=== PATIENT | male | born 1975 | race Caucasian/White ===

== ENCOUNTER 2025-03-31 16:12 | Inpatient (IN) | payer SELFPAY ==
[2025-03-31] VITALS (33 sets, daily range): BP systolic 80–155; BP diastolic 57–99; PULSE 57–160; RESP 9–23; TEMP 37.3; O2SAT 91–98; BMI 25.0
--- NOTE | 2025-03-31 16:16 | ED.C_ITS ---
Documented by User: BROCK Denny 03/31/25 17:46 HPI - Psych 2 General: Chief Complaint: Psychiatric Symptoms Stated Complaint: 96 Time Seen by Provider: 03/31/25 16:14 Source: patient Mode of arrival: EMS Limitations: no limitations History of Present Illness: Patient is a 49-year-old male presents to ED today on a 96-hour hold. According to hold paperwork filed by patient's family he has had a change in mental status over the past 2 weeks or so. They are concerned about potential drug use. 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 Paperwork states he has been exhibiting paranoid behavior-suspiciously watching family members, covering house windows, etc. He has apparently made statements to kill himself. complaint: altered mental status and other (psychosis) Onset (ago): unknown Relieving factors: none Exacerbating factors: none Associated symptoms: Reports no associated symptoms; Deny auditory hallucinations, visual hallucinations, homicidal ideation or suicidal ideation Treatments prior to arrival: placed on mental health hold Review of Systems 2 Const: Denies: fever(s) or chills Card: Reports: palpitations (feels like his heart is racing-anxious, does not want to be here); Denies: chest pain, edema, lightheadedness, syncope, pre-syncope, dyspnea on exertion or orthopnea Resp: Denies: dyspnea GI: Denies: abdominal pain, nausea, vomiting or diarrhea Musc: Denies: neck pain, back pain, extremity pain, extremity swelling, joint pain or joint swelling Skin/Breast: Denies: rash Neuro: Denies: headache(s), numbness in extremities, weakness in extremities or sensory changes Psych: Reports: anxiety, mood swings and paranoia; Denies: hopelessness, visual hallucinations, auditory hallucinations, suicidal ideation or homicidal ideation Physical Exam 2 Const: COMMON NORMALS: no acute distress, average body habitus, patient oriented x3, no limitations, healthy appearing, alert and well nourished G ENERAL APPEARANCE: cooperative ORIENTATION/CONSCIOUSNESS: Yes awake, Yes oriented to person, Yes oriented to place and Yes oriented to time OTHER: mildly agitated-does not want to be here Neck/C-Spine: COMMON NORMALS: no JVD Chest: COMMONS NORMALS: normal inspection of the chest and normal palpation of entire chest wall Resp: COMMON NORMALS: normal respiratory effort and clear to auscultation bilaterally AUSCULTATION: clear to auscultation bilaterally Cardio: COMMON NORMALS: no JVD RATE: tachycardic RHYTHM: abnormal rhythm irregularly irregular GI: COMMON NORMALS: Normal to inspection, nondistended, normoactive bowel sounds present, Soft to palpation, non-tender, No hepatosplenomegaly present and no masses PALPATION: Yes Soft to palpation and Yes No hepatosplenomegaly present : COMMON NORMALS: Yes no CVA tenderness BLADDER/KIDNEY EXAM: Yes no CVA tenderness Back/Pelvis: COMMON NORMALS: no CVA tenderness Extremity: COMMON NORMALS: capillary refill normal, no clubbing, cyanosis or edema, no calf tenderness and no pedal edema GENERAL: Yes normal exam except as noted Neuro: DIANNE COMA SCALE: document GCS findings Johnson coma scale eye opening: Spontaneous Johnson coma scale verbal response: Orientated Johnson coma scale motor response: Obey commands Johnson coma scale total score: 15 COMMON NORMALS: patient oriented x3, moves all extremities, no focal motor deficits and no sensory deficits noted SENSORIUM/ORIENTATION: Yes alert, Yes oriented to person, Yes oriented to place and Yes oriented to time Psych: COMMON NORMALS: Normal thought process present and speech normal A PPEARANCE: Yes grossly normal ATTITUDE: Yes calm ACTIVITY/MOTOR BEHAVIOR: Yes appropriate eye contact SPEECH: Yes normal speech MOOD & AFFECT: Yes Other affect and mood findings present (irritated) THOUGHT PROCESS: Normal thought process present ATTENTION/CONCENTRATION: Yes attention grossly intact and Yes concentration grossly intact MEMORY/COGNITION: Yes memory grossly intact and Yes cognition grossly intact INSIGHT: Limited insight present (Psych) JUDGEMENT: Limited judgement present (Psych) Course 2 Consultations: Consultation #1: Dr. Bermudez-accepts patient to CSU Consultation #2: Dr. Niño-agrees to consult while patient is admitted Vital Signs: Vital signs: Vital Signs Pulse Rate 75 03/31/25 17:47 Respiratory Rate 18 03/31/25 17:47 Blood Pressure 139/95 03/31/25 17:47 Pulse Oximetry 96 03/31/25 17:47 Oxygen Delivery Me thod Room Air 03/31/25 16:13 MDM - Psych Medical Decision Making Patient arrives here on a 96-hour hold. He was found to be in A-fib with RVR with rates up into the 140s-160s upon arrival. Has no history of cardiac arrhythmia. No known medical problems that he is aware of. Patient will be a medical admit and will have psychiatry, Dr. Niño, consult while he is admitted. I spoke to Dr. Bermudez who will be accepting the patient to CSU. Differential Diagnosis Likely acute psychosis Medical Records I reviewed the patient's medical records. Lab Data I reviewed the patient's lab results. 03/31/25 16:32 03/31/25 16:[address] 03/31/25 17:28 IMPRESSION: No acute intracranial abnormality. Laboratory Results WBC 10.00 10^3/uL (3.29-11.43) 03/31/25 16:32 RBC 5.16 10^6/uL (3.85-5.65) 03/31/25 16:32 Hgb 16.20 g/dL (11.27-16.99) 03/31/25 16:32 Hct 47.0 % (37-53) 03/31/25 16:32 MCV 91.1 fl (82-101) 03/31/25 16:32 MCH 31.4 pg (27-33) 03/31/25 16:32 MCHC 34.5 g/dL (30-55) 03/31/25 16:32 RDW 12.4 % (12.1-15.1) 03/31/25 16:32 Plt Count 242 10^3/cmm (157-399) 03/31/25 16:32 MPV 10.8 fL (7.4-10.4) H 03/31/25 16:32 Neut % (Auto) 62.5 % 03/31/25 16:32 Lymph % (Auto) 24.8 % 03/31/25 16:32 [place] % (Auto) 8.8 % 03/31/25 16:32 Eos % (Auto) 3.4 % 03/31/25 16:32 Baso % (Auto) 0.3 % 03/31/25 16:32 Neut # (Auto) 6.25 10^3/uL (1.8-7.7) 03/31/25 16:32 Lymph # (Auto) 2.5 10^3/uL (0.8-4.8) 03/31/25 16:32 [place] # (Auto) 0.9 10^3/uL (0.2-0.9) 03/31/25 16:32 Eos # (Auto) 0.3 10^3/uL (0.0-0.8) 03/31/25 16:32 Baso # (Auto) 0.0 10^3/uL (0.0-0.1) 03/31/25 16:32 Nucleated RBC % (auto) 0 % 03/31/25 16:32 Nucleated RBCs # 0.0 /100WBC 03/31/25 16:32 Sodium 140 mmol/L (136-145) 03/31/25 16:32 Potassium 3.3 mmol/L (3.5-5.1) L 03/31/25 16:32 Chloride 102 mmol/L (98-107) 03/31/25 16:32 Carbon Dioxide 21 mmol/L (22-29) L 03/31/25 16:32 Anion Gap 20.3 (5-19) H 03/31/25 16:32 BUN 5 mg/dL (6-20) L 03/31/25 16:32 Creatinine 0.8 mg/dL (0.7-1.2) 03/31/25 16:32 GFR Calculation 101.9 mL/min (90-130) 03/31/25 16:32 Glucose 134 mg/dL (65-115) H 03/31/25 16:32 Calculated Osmolality 289 mOsm/kg (285-295) 03/31/25 16:32 Calcium 9.0 mg/dL (8.5-10.5) 03/31/25 16:32 Total Bilirubin 0.5 mg/dL (0.15-1.2) 03/31/25 16:32 AST 16 U/L (0-40) 03/31/25 16:32 ALT 17 U/L (0-41) 03/31/25 16:32 Alkaline Phosphatase 75 U/L (40-130) 03/31/25 16:32 Troponin T Baseline 9 ng/L (0-15) 03/31/25 16:32 NT-Pro-B Natriuret Pep 44 pg/mL (0-125) 03/31/25 16:32 Total Protein 6.9 g/dL (6.6-8.7) 03/31/25 16:32 Albumin 4.3 g/dL (3.5-5.2) 03/31/25 16:32 Globulin 2.6 g/dL (1.3-4.6) 03/31/25 16:32 TSH 1.37 uIU/mL (0.27-4.20) 03/31/25 16:32 Salicylates < 0.3 mg/dL (3-10) L 03/31/25 16:32 Urine Opiates Screen Negative ng/mL (Negative) 03/31/25 17:15 Acetaminophen < 5.0 ug/mL (10-30) L 03/31/25 16:32 Ur Barbiturates Screen Negative ng/mL (Negative) 03/31/25 17:15 Ur Phencyclidine Scrn Negative ng/mL (Negative) 03/31/25 17:15 Ur Amphetamines Screen Negative ng/mL (Negative) 03/31/25 17:15 U Benzodiazepines Scrn Negative ng/mL (Negative) 03/31/25 17:15 Urine Cocaine Screen Negative ng/mL (Negative) 03/31/25 17:15 U Marijuana (THC) Screen Positive ng/mL (Negative) H 03/31/25 17:15 Ethyl Alcohol < 10 mg/dL (0-10) 03/31/25 16:32 XR interpretation done by ED provider, pending radiology final review Discharge Plan Discharge Patient Disposition: Admitted As Inpatient Clinical Impression: Acute psychosis, Involuntary commitment, Atrial fibrillation with rapid ventricular response Condition: Stable Coding Level of Care Code ED Shipbuilding Draftsperson for Chg Fwd Documented by User: Chilo Jain MD 03/31/25 18:18 HPI - Psych 2 General: Chief Complaint: Psychiatric Symptoms Stated Complaint: 96 Time Seen by Provider: 03/31/25 16:14 Physical Exam 2 Neuro: DIANNE COMA SCALE: document GCS findings Dianne coma scale total score: 15 Course 2 Vital Signs: Vital signs: Vital Signs Pulse Rate 75 03/31/25 17:47 Respiratory Rate 18 03/31/25 17:47 Blood Pressure 139/95 03/31/25 17:47 Pulse Oximetry 96 03/31/25 17:47 Oxygen Delivery Me thod Room Air 03/31/25 16:13 [facility] - Psych Medical Decision Making Patient arrives here on a 96-hour hold. He was found to be in A-fib with RVR with rates up into the 140s-160s upon arrival. Has no history of cardiac arrhythmia. No known medical problems that he is aware of. Patient will be a medical admit and will have psychiatry, Dr. Niño, consult while he is admitted. I spoke to Dr. Bermudez who will be accepting the patient to CSU. I saw patient with above midlevel agree with her history and physical. Patient originally came on a 96-hour hold for suicidal ideation he is found to be in A- fib with RVR did require Cardizem his heart rate here is improved. Patient is being admitted medically at this time to Dr. Alvarenga to CSU Dr. Niño was consulted for psych Lab Data 03/31/25 16:32 03/31/25 16:[address] 03/31/25 17:28 IMPRESSION: No acute intracranial abnormality. Laboratory Results WBC 10.00 10^3/uL (3.29-11.43) 03/31/25 16:32 RBC 5.16 10^6/uL (3.85-5.65) 03/31/25 16:32 Hgb 16.20 g/dL (11.27-16.99) 03/31/25 16:32 Hct 47.0 % (37-53) 03/31/25 16:32 MCV 91.1 fl (82-101) 03/31/25 16:32 MCH 31.4 pg (27-33) 03/31/25 16:32 MCHC 34.5 g/dL (30-55) 03/31/25 16:32 RDW 12.4 % (12.1-15.1) 03/31/25 16:32 Plt Count 242 10^3/cmm (157-399) 03/31/25 16:32 MPV 10.8 fL (7.4-10.4) H 03/31/25 16:32 Neut % (Auto) 62.5 % 03/31/25 16:32 Lymph % (Auto) 24.8 % 03/31/25 16:32 [place] % (Auto) 8.8 % 03/31/25 16:32 Eos % (Auto) 3.4 % 03/31/25 16:32 Baso % (Auto) 0.3 % 03/31/25 16:32 Neut # (Auto) 6.25 10^3/uL (1.8-7.7) 03/31/25 16:32 Lymph # (Auto) 2.5 10^3/uL (0.8-4.8) 03/31/25 16:32 [place] # (Auto) 0.9 10^3/uL (0.2-0.9) 03/31/25 16:32 Eos # (Auto) 0.3 10^3/uL (0.0-0.8) 03/31/25 16:32 Baso # (Auto) 0.0 10^3/uL (0.0-0.1) 03/31/25 16:32 Nucleated RBC % (auto) 0 % 03/31/25 16:32 Nucleated RBCs # 0.0 /100WBC 03/31/25 16:32 Sodium 140 mmol/L (136-145) 03/31/25 16:32 Potassium 3.3 mmol/L (3.5-5.1) L 03/31/25 16:32 Chloride 102 mmol/L (98-107) 03/31/25 16:32 Carbon Dioxide 21 mmol/L (22-29) L 03/31/25 16:32 Anion Gap 20.3 (5-19) H 03/31/25 16:32 BUN 5 mg/dL (6-20) L 03/31/25 16:32 Creatinine 0.8 mg/dL (0.7-1.2) 03/31/25 16:32 GFR Calculation 101.9 mL/min (90-130) 03/31/25 16:32 Glucose 134 mg/dL (65-115) H 03/31/25 16:32 Calculated Osmolality 289 mOsm/kg (285-295) 03/31/25 16:32 Calcium 9.0 mg/dL (8.5-10.5) 03/31/25 16:32 Total Bilirubin 0.5 mg/dL (0.15-1.2) 03/31/25 16:32 AST 16 U/L (0-40) 03/31/25 16:32 ALT 17 U/L (0-41) 03/31/25 16:32 Alkaline Phosphatase 75 U/L (40-130) 03/31/25 16:32 Troponin T Baseline 9 ng/L (0-15) 03/31/25 16:32 NT-Pro-B Natriuret Pep 44 pg/mL (0-125) 03/31/25 16:32 Total Protein 6.9 g/dL (6.6-8.7) 03/31/25 16:32 Albumin 4.3 g/dL (3.5-5.2) 03/31/25 16:32 Globulin 2.6 g/dL (1.3-4.6) 03/31/25 16:32 TSH 1.37 uIU/mL (0.27-4.20) 03/31/25 16:32 Salicylates < 0.3 mg/dL (3-10) L 03/31/25 16:32 Urine Opiates Screen Negative ng/mL (Negative) 03/31/25 17:15 Acetaminophen < 5.0 ug/mL (10-30) L 03/31/25 16:32 Ur Barbiturates Screen Negative ng/mL (Negative) 03/31/25 17:15 Ur Phencyclidine Scrn Negative ng/mL (Negative) 03/31/25 17:15 Ur Amphetamines Screen Negative ng/mL (Negative) 03/31/25 17:15 U Benzodiazepines Scrn Negative ng/mL (Negative) 03/31/25 17:15 Urine Cocaine Screen Negative ng/mL (Negative) 03/31/25 17:15 U Marijuana (THC) Screen Positive ng/mL (Negative) H 03/31/25 17:15 Ethyl Alcohol < 10 mg/dL (0-10) 03/31/25 16:32 Discharge Plan Discharge Patient Disposition: Admitted As Inpatient Clinical Impression: Acute psychosis, Involuntary commitment, Atrial fibrillation with rapid ventricular response Condition: Stable Coding Level of Care Code ED Shipbuilding Draftsperson for Tsering Hernandez
[2025-03-31 16:47] LABS: Hematocrit 47.0 % (37-53); Hemoglobin 16.20 g/dL (11.27-16.99); Mean Corpuscular HGB Conc 34.5 g/dL (30-55); Mean Corpuscular Hemoglobin 31.4 pg (27-33); Mean Corpuscular Volume 91.1 fl (82-101); Nucleated Red Blood Cells % 0 %; Platelet Count 242 10^3/cmm (157-399); Red Blood Count 5.16 10^6/uL (3.85-5.65); White Blood Count 10.00 10^3/uL (3.29-11.43)
--- NOTE | 2025-03-31 16:52 | ECG_ITS ---
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 Measurements Intervals [place] Rate: 142 P: 0 TX: 0 QRS: 84 QRSD: 95 T: -25 QT: 292 QTc: 450 Interpretive Statements ATRIAL FIBRILLATION WITH RAPID VENTRICULAR RESPONSE NONSPECIFIC ST & T-WAVE ABNORMALITY No previous ECG available for comparison Electronically Signed On 04-01-2025 11:57:59 CDT by Clifford Lee M.D. [email or web address] [id number]
[2025-03-31 17:04] LABS: Alanine Aminotransferase 17 U/L (0-41); Albumin Level 4.3 g/dL (3.5-5.2); Alkaline Phosphatase 75 U/L (40-130); Anion Gap 20.3 (5-19); Aspartate Amino Transferase 16 U/L (0-40); Blood Urea Nitrogen 5 mg/dL (6-20); Calcium 9.0 mg/dL (8.5-10.5); Carbon Dioxide 21 mmol/L (22-29); Chloride 102 mmol/L (98-107); Creatinine Clr Calc Pharmacy 123.8058; Globulin 2.6 g/dL (1.3-4.6); Glucose 134 mg/dL (65-115); Osmolality Calculated 289 mOsm/kg (285-295); Potassium 3.3 mmol/L (3.5-5.1); Sodium 140 mmol/L (136-145); Total Protein 6.9 g/dL (6.6-8.7)
[2025-03-31 17:05] LABS: Acetaminophen < 5.0 ug/mL (10-30); Alcohol Level < 10 mg/dL (0-10); Salicylate < 0.3 mg/dL (3-10)
[2025-03-31 17:14] LABS: NT Pro B Type Natriuretic Pept 44 pg/mL (0-125)
[2025-03-31] MEDS: dilTIAZem 5 mg/mL SDV 5 mL 10 MG IVP (17:16)
--- NOTE | 2025-03-31 17:28 | CTR_ITS ---
PROCEDURE INFORMATION: Exam: CT Head Without Contrast Exam date and time: 03/31/2025 5:32 PM Age: 49 years old Clinical indication: Altered mental status/memory loss; Confusion or disorientation; Additional info: Afib, change n mental status TECHNIQUE: Imaging protocol: Computed tomography of the head without contrast. Radiation optimization: All CT scans at this facility use at least one of these dose optimization techniques: automated exposure control; mA and/or kV adjustment per patient size (includes targeted exams where dose is matched to clinical indication); or iterative reconstruction. COMPARISON: No relevant prior studies available. RADIATION DOSE METRICS: Total DLP (mGy-cm): 1138.28 FINDINGS: Brain: Normal. No hemorrhage. Unremarkable white matter. No mass effect. Cerebral ventricles: No ventriculomegaly. Paranasal sinuses: Visualized sinuses are unremarkable. No fluid levels. Mastoid air cells: Visualized mastoid air cells are well aerated. Bones: Unremarkable. No acute fracture. Soft tissues: Unremarkable. CT/CT head wo con* [id number] IMPRESSION: No acute intracranial abnormality.
--- NOTE | 2025-03-31 17:30 | PM.HP ---
Providers/Chief Complaint Chief Complaint: 96 History of Present Illness Jayesh Felder is a 49 year old male who presents [facility] due to change in mental status, concern for drug abuse, homicidal statements, paranoid behaviors, statements to kill himself, comes in with a 96-hour hold filed by patient's family. Currently patient is alert to person, to place, to time he follows commands currently in A-fib with RVR heart rates into the 140s, he is easily agitated, but can answer my questions, denies any IV drug use, does report marijuana use, does report drinking sweet tea, denies any caffeine use, no personal family history of CAD no chest pain, no shortness of breath, no fevers, no chills, no headache, no neck pain, neck stiffness, no facial droop, slurring his words, moving bilateral upper and lower extremities, no visual deficits, he tells me that we are holding him here against as his will Review of Systems Const: Reports: fever(s) and chills Card: Reports: palpitations Vitals/I&O/Wt Last Vital Signs Pulse 160 H 03/31/25 17:10 Resp 18 03/31/25 16:13 BP 155/87 03/31/25 17:10 Pulse Ox 98 03/31/25 17:10 O2 Del Method Room Air 03/31/25 16:13 Weight last 48 hrs Weight 83.915 kg Physical Exam Const: COMMON NORMALS: no acute distress ORIENTATION/CONSCIOUSNESS: Yes awake, Yes oriented to person and Yes oriented to place; not oriented to time Eye: COMMON NORMALS: Equal, round and reactive pupils present Resp: COMMON NORMALS: normal respiratory effort, No retractions, No use of accessory muscles and clear to auscultation bilaterally AUSCULTATION: clear to auscultation bilaterally Cardio: COMMON NORMALS: S1 normal heart sound present and S2 normal heart sound present RATE: tachycardic RHYTHM: abnormal rhythm irregularly irregular HEART SOUNDS: S1 normal heart sound present and S2 normal heart sound present GI: COMMON NORMALS: Normal to inspection, nondistended, normoactive bowel sounds present, Soft to palpation and non-tender Extremity: COMMON NORMALS: no calf tenderness and no pedal edema Neuro: COMMON NORMALS: CN's II-XII intact bilaterally and moves all extremities OTHER: For his bilateral upper and lower extremities, follows commands, Data 03/31/25 16:32 03/31/25 16:32 A&P Assessment and plan 1. Atrial fibrillation with rapid ventricular response: 2. Altered mental status: Plan: Atrial fibrillation with rapid ventricular response -Received Cardizem, patient became hypotensive, blood pressures remain soft, MAP greater than 65,, remains in A-fib with RVR - Switch to amiodarone drip - Cardiac echocardiogram - TSH, mag - Replace potassium Altered mental status - Concerns for suicidal and homicidal ideation, paranoid delusions - Urine toxicology screen - UA - CT head - Brought in on a 96-hour hold, filed by patient's family Full code Lovenox for DVT prophylaxis PDMP PDMP Reviewed: Not Reviewed Attestations Medical Necessity Statement*: Patient requires hospitalization for A-fib with RVR, inpatient, greater than 2 midnights Diagnoses Atrial fibrillation with rapid ventricular response I48.91 Altered mental status R41.82
[2025-03-31 17:31] LABS: Troponin(5th) Baseline 9 ng/L (0-15)
[2025-03-31 17:38] LABS: PCP Screen Urine Negative (Negative)
[2025-03-31 17:39] LABS: Thyroid Stimulating Hormone 1.37 uIU/mL (0.27-4.20)
--- NOTE | 2025-03-31 17:41 | PC.NURSE ---
96 hour hold rights read to pt at this time . Security present
--- NOTE | 2025-03-31 18:52 | ECG_ITS ---
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 Measurements Intervals [place] Rate: 77 P: 64 NC: 170 QRS: 81 QRSD: 94 T: 39 QT: 349 QTc: 396 Interpretive Statements SINUS RHYTHM Compared to ECG 03/31/2025 16:34:51 Atrial fibrillation no longer present T-wave abnormality no longer present Electronically Signed On 04-01-2025 12:06:33 CDT by Clifford Lee M.D. [email or web address] [id number]
--- NOTE | 2025-03-31 20:13 | PC.NURSE ---
Patient denies any history suicidal ideations.
[2025-03-31 20:19] LABS: Cholesterol 153 mg/dL (0-200); HDL Cholesterol 33 mg/dL (60-100); Triglycerides 95 mg/dL (0-150)
--- NOTE | 2025-03-31 20:21 | PC.NURSE ---
Pt refused protonix, physician notified.
[2025-03-31 21:09] LABS: Estmated Average Glucose 105; Hemoglobin A1C 5.3 % (4.0-6.0)
--- NOTE | 2025-03-31 22:38 | PC.NURSE ---
Pt refusing all labs despite being educated on the importance of the lab values being monitored. Dr. Evans notified. Pt otherwise pleasant and cooperative.
--- NOTE | 2025-03-31 22:52 | ECG_ITS ---
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 Measurements Intervals [place] Rate: 53 P: 69 FL: 164 QRS: 84 QRSD: 105 T: 46 QT: 415 QTc: 390 Interpretive Statements SINUS BRADYCARDIA Compared to ECG 03/31/2025 17:47:59 Sinus rhythm no longer present Electronically Signed On 04-01-2025 12:05:30 CDT by Clifford Lee M.D. [email or web address] [id number]
[2025-04-01] VITALS (39 sets, daily range): BP systolic 109–150; BP diastolic 70–100; PULSE 42–70; RESP 11–22; TEMP 36.3–36.8; O2SAT 90–99; BMI 25.1
--- NOTE | 2025-04-01 05:42 | PC.NURSE ---
Patient refused lovenox injection, pt educated on benefits of lovenox but still refuses. Dr. Evans notified. Pt also refused morning labs.
--- NOTE | 2025-04-01 05:50 | P.EN_ITS ---
Event Note Event Note: Patient vitally stable, however continues to refuse his scheduled medications. Adequate counseling provided for the risk and benefits with further complications of refusal of medications. Counseling also provided for the need of his treatment and acuity of illness that is improving and needs further treatment. Continue on counseling and emphasis every shift and to optimize his care Monitor hemodynamics Event Notes Attestations Time Spent in Patient Care: less than 15 minutes (>than 50% of time spent in counselling and/or direct pt care on unit) .
[2025-04-01 06:10] LABS: Glucose Urine UA Negative (Normal); Nitrate Urine Negative (Negative); Specific Gravity, Urine 1.017 (1.005-1.030)
[2025-04-01 06:15] LABS: Add Urine Microscopic? YES
--- NOTE | 2025-04-01 07:05 | P.NPUHP_ITS ---
Providers/Chief Complaint 2 Admitting Physician: Terrell Bermudez MD Chief Complaint: 96 HPI NPU History of Present Illness Jayesh Felder is a 49 year old male who presented to the emergency department with the following report: Chief Complaint: Psychiatric Symptoms Stated Complaint: 96 Time Seen by Provider: 03/31/25 16:14 Source: patient Mode of arrival: EMS Limitations: no limitations History of Present Illness: Patient is a 49-year-old male presents to ED today on a 96-hour hold. According to hold paperwork filed by patient's family he has had a change in mental status over the past 2 weeks or so. They are concerned about potential drug use. 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 Paperwork states he has been exhibiting paranoid behavior-suspiciously watching family members, covering house windows, etc. He has apparently made statements to kill himself. complaint: altered mental status and other (psychosis) Onset (ago): unknown Relieving factors: none Exacerbating factors: none Associated symptoms: Reports no associated symptoms; Deny auditory hallucinations, visual hallucinations, homicidal ideation or suicidal ideation Treatments prior to arrival: placed on mental health hold. He was admitted to the ICU secondary to some cardiac concerns that happened on admission but otherwise his admission was based on concern for altered mental status and odd behaviors over the past couple weeks raising concerns for addiction. He presents with a UDS positive for cannabis denying any issues or wanting any treatment of any kind. He found it comical often laughing about being on a 96-hour hold. His report is that this has to do with his family trying to take a property away from him. He reports that he has lived on his grandparents property which is approximately 40 acres for at least a year but has been there at different times in his life. He reports that after the of the last grandparent things went into probate because of Bill not having a clear plan of what was to happen with their belongings. He reports that there is now a nuñez over the property and he believes at some level that this is an attack trying to prevent him from having his right pole placed on the property as his grandparents had reportedly stated that they wanted him to have it. Family reports significant issues of behavioral changes but he denies any of the things in the affidavit. He denied making any suicidal or homicidal statements, he denied any strange behavior and only reports cannabis use. When this proposal manager writer raised the possibility that the cannabis use could be a source of behavioral change/psychosis he reported that he always used the appropriate strength and did not overuse and so there was no risk in his mind or any way that cannabis could have caused this problem. We discussed briefly that that cannot be the evidence as but that with his position. He endorses a history of tobacco use but denies current use, he endorses past alcohol use but not currently and possibly had a DUI in the past but it was released 30 years ago because it was before his children were born. He endorsed cannabis use but not overuse and denied use of any other illicit drugs. He denied any sober living treatment. He denied any charges. He denies any history of mental health issues or need for treatment in the past. Denying symptoms consistent with depression, anxiety, PTSD, OCD but did endorse having had ADHD and may be receiving Ritalin in the past from a doctor that he called Dr. Newton but this proposal manager writer queried whether that could be Dr. Neftaly Higginbotham who had been here for some time. No records existed that confirmed that but he reports he got the treatment in [facility]. Otherwise he reported no issues whatsoever and not believing he needs to be in the hospital. We discussed the risks, benefits and alternatives of getting collateral information and he understood and agreed to proceed as documented in the note. Past psychiatric history: As above. Symptoms abuse history: As above. Family history: He denies any mental health issues that he is aware of reports that likely was an addiction issue but denied any suicide attempt or by suicide. Developmental history: He denies any issues with his or delivery, and endorses that he learned to walk and complement his developmental milestones on time. He would often rule he denied any history of therapy, learning support, multiple orthopedic medications. Psychosocial history: He reports that his parents were together when he was born and that he is the youngest of 3. He denies any issues of abuse or neglect at his childhood. He denied living with any one other than his parents during his childhood. He denies any clear traumatic events. He denies graduating from high school reporting that he dropped out birthday of his senior year. He denied ever getting ADD. He endorses being a heterosexual and reports having had multiple significant relationships reporting he was recently to a 3 time and he developed ended in divorce. He reports he has 3 children all grown 2 boys and a girl. He has never been in the , and endorses being a Orthodox. 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 He currently lives in the farm house but his grandparents property alone with 1 dog. Legal history: He reports that he was only in [facility] briefly during that DUI. He denies any other legal problems outside of probate issues with the family farm. Medical history: He identified that he has of the issues that were identified on admission but otherwise denied major medical history but believes he hospitalist note for additional information. Meds NPU Home Medications ?Medication ?Instructions ?Recorded ?Confirmed ?Last Taken ?Type No Known Home Medications 04/01/2503/15 Unknown History Allergies Allergy/AdvReac Type Severity Reaction Status Date / Time No Known Allergies Allergy Verified 04/01/25 14:32 [facility] NPU 2 [facility]: Social History (Updated 04/01/25 @ 14:32 by Pilar Reynolds RN) Smoking and tobacco/nicotine status: current every day tobacco/nicotine user smokeless tobacco Mental Status Exam 2 MSE Comments: This is a well-nourished well-developed white male in hospital scrubs with adequate grooming and eye contact. No abnormal movements except for mild psychomotor agitation. Cooperative with exam in mild to moderate distress. Speech was slightly increased rate and volume. Mood described as fine and not needing to be in the hospital, affect guarded. Thought process linear. Thought content: Patient denied suicidal or homicidal ideation, there were no delusions reported but some paranoid or persecutory delusions seem to present, he denied denied auditory or visual hallucinations. Attention and concentration were intact and memory appeared unreliable but none were formally tested. He is alert and oriented times 3. Insight and judgment appear fair and impulse control is impaired. Vitals/I&O/Wt Last Vital Signs Temp 97.3 F L 04/01/25 05:00 Pulse 56 L 04/01/25 06:00 Resp 19 H 04/01/25 06:00 BP 111/76 04/01/25 06:00 Pulse Ox 98 04/01/25 05:00 O2 Del Method Room Air 04/01/25 05:00 03/31/25 04/01/25 04/01/25 22:59 06:59 14:59 Intake Total 355 / 355 Output Total 300 / 300 Balance 355 / 355 -300 / 55 Weight last 48 hrs Weight 83 kg Weight 83 kg Weight 83.915 kg Data NPU 03/31/25 16:32 03/31/25 16:32 A&P Assessment and plan 1. Acute psychosis: 2. Involuntary commitment: 3. Altered mental status: 4. Parent-child relational problem: Plan: This is a 49-year-old white male unknown to [facility] psychiatry presenting on a 96-hour hold denying who was sent to the ICU and now is transferred to the neuropsychiatric unit for definitive treatment and evaluation of his safety for discharge given his 96-hour hold. He endorses active cannabis use but denied any mental health issues. 1.? Continue current medication.? Explore needed for psychotropic medications. 2.? Continue every 15 minute checks for safety. 3.? Encourage individual, group and milieu therapies. 4.? Encourage sober living treatment after discharge at the highest level of care to which he is willing to commit. 5. Obtain collateral information. 6. Observe against the backdrop of 96-hour hold. PDMP PDMP Reviewed: Not Reviewed Attestations NPU 2 Medical Necessity Statement*: Inpatient hospitalization is medically necessary and the clinically appropriate intervention at this time. We will monitor/initiate medications and make changes as indicated. Patient will be in the hospital for over two midnights. Likely length of stay 3-5 days. Coding Level of Care Code Acute Code for Chg Fwd Diagnoses Acute psychosis F23 Involuntary commitment Z04.6 Altered mental status R41.82 Parent-child relational problem Z62.820
--- NOTE | 2025-04-01 14:14 | PC.ADMIT ---
[address] Admission Note: The patient,Jayesh Felder,49 y/o, was given written information regarding hospital policies, unit procedures and contact persons. Patient's smoking status: . Vital Signs - 8 hr 04/01/25 06:15 04/01/25 06:30 04/01/25 06:45 Temperature Pulse Rate 60 55 L 54 L Respiratory Rate 14 19 H 16 Blood Pressure Pulse Oximetry Oxygen Delivery Method Oxygen Delivery Method [Current Rate & Delivery] 04/01/25 07:00 04/01/25 07:15 04/01/25 07:30 Temperature Pulse Rate 51 L 63 Respiratory Rate 13 21 H Blood Pressure 138/93 Pulse Oximetry 99 95 Oxygen Delivery Method Oxygen Delivery Method [Current Rate & Delivery] 04/01/25 07:45 04/01/25 08:00 04/01/25 08:15 Temperature Pulse Rate 44 L 51 L 60 Respiratory Rate 17 19 H 11 L Blood Pressure 138/93 111/70 111/70 Pulse Oximetry 95 95 Oxygen Delivery Method Oxygen Delivery Method [Current Rate & Delivery] 04/01/25 08:30 04/01/25 08:45 04/01/25 09:00 Temperature Pulse Rate 70 53 L 56 L Respiratory Rate 17 18 16 Blood Pressure 111/70 111/70 127/91 Pulse Oximetry Oxygen Delivery Method Oxygen Delivery Method [Current Rate & Delivery] 04/01/25 09:15 04/01/25 09:30 04/01/25 09:45 Temperature Pulse Rate 62 48 L 55 L Respiratory Rate 22 H 12 14 Blood Pressure 127/91 127/91 127/91 Pulse Oximetry Oxygen Delivery Method Oxygen Delivery Method [Current Rate & Delivery] 04/01/25 10:00 04/01/25 10:07 04/01/25 10:15 Temperature Pulse Rate 54 L 47 L 49 L Respiratory Rate 17 19 H Blood Pressure 127/91 Pulse Oximetry 95 Oxygen Delivery Method Oxygen Delivery Method [Current Rate & Delivery] Room Air 04/01/25 10:30 04/01/25 13:41 04/01/25 13:42 Temperature 97.4 F L Pulse Rate 61 55 L Respiratory Rate 20 H Blood Pressure 150/100 Pulse Oximetry 95 96 Oxygen Delivery Method Room Air Room Air Oxygen Delivery Method [Current Rate & Delivery] 04/01/25 13:59 Temperature 97.4 F L Pulse Rate 55 L Respiratory Rate 20 H Blood Pressure 150/100 Pulse Oximetry 96 Oxygen Delivery Method Room Air Oxygen Delivery Method [Current Rate & Delivery] 49 year old male patient admitted to NPU. Patient is cooperative with the assessment. He denies SI/HI/AVH, anxiety and depression. He denies a personal and family history of psychiatric diagnosis. He reports that he uses marijuana daily and he smokes cigars daily. 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 Patient reports that he doesn't know why he is here but that he suspects that his dad has people in high enough places and Charles De La Garza is one of them. He reports NKDA or medications at present.
--- NOTE | 2025-04-01 15:51 | P.PN_ITS ---
Subjective 2 Subjective: Patient was seen this morning, currently alert oriented x 3, following all commands, he converted to normal sinus rhythm, currently sinus rhythm, did not have amiodarone started according to nursing staff, no headache, no blurry vision, no nausea, no vomiting, no lightheadedness, no dizziness Vitals/I&O/Wt Last Vital Signs Temp 97.4 F L 04/01/25 13:59 Pulse 55 L 04/01/25 13:59 Resp 20 H 04/01/25 13:59 BP 150/100 04/01/25 13:59 Pulse Ox 96 04/01/25 13:59 O2 Del Method Room Air 04/01/25 13:59 04/01/25 04/01/25 04/01/25 06:59 14:59 22:59 Intake Total 200 / 200 Output Total 300 / 300 Balance -300 / 55 200 / 200 Weight last 48 hrs Weight 83 kg Weight 83 kg Weight 83.915 kg Physical Exam 2 Const: COMMON NORMALS: no acute distress and patient oriented x3 Resp: COMMON NORMALS: normal respiratory effort, No retractions, No use of accessory muscles and clear to auscultation bilaterally AUSCULTATION: clear to auscultation bilaterally Cardio: COMMON NORMALS: regular rate, regular rhythm, S1 normal heart sound present and S2 normal heart sound present RATE: regular rate RHYTHM: r egular rhythm HEART SOUNDS: S1 normal heart sound present and S2 normal heart sound present GI: COMMON NORMALS: Normal to inspection, nondistended, normoactive bowel sounds present and non-tender Extremity: COMMON NORMALS: no pedal edema Neuro: COMMON NORMALS: patient oriented x3 Psych: COMMON NORMALS: mental status grossly normal Data 03/31/25 16:32 03/31/25 16:32 A&P Assessment and plan 1. Atrial fibrillation with rapid ventricular response: 2. Altered mental status: Plan: Atrial fibrillation with rapid ventricular response - Converted to normal sinus rhythm -Metoprolol 12.5 twice daily, aspirin 81 mg, will need to follow-up with cardiology as outpatient - Cardiac echocardiogram - TSH within normal limits Altered mental status - Concerns for suicidal and homicidal ideation, paranoid delusions - Urine toxicology screen positive for marijuana - UA no acute findings - CT head no acute findings - Brought in on a 96-hour hold, filed by patient's family Full code [facility] Reviewed: Not Reviewed Attestations 2 Medical Necessity Statement*: Patient requires hospitalization for atrial fibrillation Diagnoses Atrial fibrillation with rapid ventricular response I48.91 Altered mental status R41.82
--- NOTE | 2025-04-01 17:26 | USCV_ITS ---
Jayesh Felder Age: 49 Gender: M : 1975 Exam Date: 04/01/2025 09:23 Ordering Phys: Terrell Bermudez MD Technologist: CODY Exam Location: [facility] Indication: afibrvr BP: 111 / 70 HR: 50 Rhythm: Sinus Technical Quality: Adequate MEASUREMENTS (Male / Female) Normal Values 2D ECHO LV Diastolic Diameter PLAX 4.1 cm 4.2 - 5.9 / 3.9 - 5.3 cm IVS Diastolic Thickness 1.3 cm 0.6 - 1.0 / 0.6 - 0.9 cm IVS Systolic Thickness 1.3 cm LVPW Diastolic Thickness 1.0 cm 0.6 - 1.0 / 0.6 - 0.9 cm LVPW Systolic Thickness 1.6 cm LVOT Diameter 2.1 cm LV Ejection Fraction 2D Teich 65.8 % LV Ejection Fraction MOD 4C 67.3 % LV Ejection Fraction MOD 2C 67.2 % LV Ejection Fraction 2C AL 68.5 % LA Diameter 3.6 cm RA Systolic Volume 4C AL 44.9 ml RA Systolic Volume 4C MOD 43.9 ml LA Sys Volume AL 45.9 cm cubed LA Sys Volume Index AL 22.3 cm cubed/m squared Aorta at Sinotubular Diameter 2.5 cm IVC Diameter 1.6 cm M-MODE LA Ao Ratio MM 1.1 AV Cusp Separation MM 1.7 cm DOPPLER AV Peak Velocity 152.0 cm/s LVOT Peak Velocity 115.0 cm/s AV Area Cont Eq vti 2.4 cm squared AV Area Cont Eq pk 2.6 cm squared MV Peak Velocity 95.0 cm/s MV Area PHT 3.7 cm squared Mitral E to A Ratio 0.8 TV Peak Velocity 283.0 cm/s TR Peak Velocity 323.0 cm/s TR Peak Gradient 41.7 mmHg TR Mean Velocity 281.0 cm/s TR Mean Gradient 32.4 mmHg TR Velocity Time Integral 85.3 cm PV Peak Velocity 118.0 cm/s RV Ejection Time 0.3 s FINDINGS Left Ventricle Normal left ventricular size, systolic function and ejection fraction 67%. Normal left ventricular diastolic function. Mild hypertrophy of the ventricular septum. Right Ventricle Normal right ventricular size and systolic function. Right Atrium Normal right atrial size. Left Atrium Normal left atrial size. IA Septum Normal appearance of the interatrial septum. Mitral Valve Normal mitral valve structure. No mitral valve stenosis or regurgitation. Aortic Valve No aortic valve stenosis or regurgitation. Aortic valve structure not well visualized. Tricuspid Valve Normal tricuspid valve structure. No tricuspid valve stenosis. Trace regurgitation. Normal pulmonary pressure. Pulmonic Valve Normal pulmonic valve structure. No pulmonic valve stenosis or regurgitation. Pericardium No pericardial effusion. Aorta Normal diameter of the aortic root and ascending thoracic aorta. IVC Normal IVC diameter. CONCLUSIONS Normal left ventricular size, systolic function and ejection fraction of 67%. Normal right ventricular size and systolic function. Mild hypertrophy of the ventricular septum. No significant valvular abnormalities. Kristian Bishop MD, FACC (Electronically Signed) Final Date: 01 April 2025 14:18 S
[2025-04-02 06:00] VITALS: BP 121/83; PULSE 93; RESP 18; TEMP 36.3; O2SAT 99
--- NOTE | 2025-04-02 12:47 | P.PN_ITS ---
Subjective 2 Subjective: Patient was seen this morning, currently alert oriented x 3, follow commands no chest pain, no palpitations, no lightheadedness, no dizziness Vitals/I&O/Wt Last Vital Signs Temp 97.3 F L 04/02/25 06:00 Pulse 93 04/02/25 06:00 Resp 18 04/02/25 06:00 BP 121/83 04/02/25 06:00 Pulse Ox 99 04/02/25 06:00 O2 Del Method Room Air 04/02/25 06:00 Weight last 48 hrs Weight 84.028 kg Weight 83 kg Weight 83 kg Weight 83.915 kg Physical Exam 2 Const: COMMON NORMALS: no acute distress and patient oriented x3 Resp: COMMON NORMALS: normal respiratory effort, No retractions, No use of accessory muscles and clear to auscultation bilaterally AUSCULTATION: clear to auscultation bilaterally Cardio: COMMON NORMALS: regular rate, regular rhythm, S1 normal heart sound present and S2 normal heart sound present RATE: regular rate RHYTHM: r egular rhythm HEART SOUNDS: S1 normal heart sound present and S2 normal heart sound present GI: COMMON NORMALS: Normal to inspection, nondistended, normoactive bowel sounds present and non-tender Extremity: COMMON NORMALS: no calf tenderness and no pedal edema Neuro: COMMON NORMALS: patient oriented x3 Psych: COMMON NORMALS: mental status grossly normal Data 03/31/25 16:32 03/31/25 16:32 A&P Assessment and plan 1. Atrial fibrillation with rapid ventricular response: 2. Altered mental status: Plan: Atrial fibrillation with rapid ventricular response - Converted to normal sinus rhythm -Metoprolol 12.5 twice daily, aspirin 81 mg, will need to follow-up with cardiology as outpatient - Cardiac echocardiogram CONCLUSIONS Normal left ventricular size, systolic function and ejection fraction of 67%. Normal right ventricular size and systolic function. Mild hypertrophy of the ventricular septum. No significant valvular abnormalities. -Will need to follow-up with cardiology for LVH, atrial fibrillation - TSH within normal limits Altered mental status - Concerns for suicidal and homicidal ideation, paranoid delusions - Urine toxicology screen positive for marijuana - UA no acute findings - CT head no acute findings - Brought in on a 96-hour hold, filed by patient's family [facility] Reviewed: Not Reviewed Attestations 2 Medical Necessity Statement*: Patient requires hospitalization for atrial fibrillation Diagnoses Atrial fibrillation with rapid ventricular response I48.91 Altered mental status R41.82
--- NOTE | 2025-04-02 13:13 | P.NPUPN_ITS ---
Subjective NPU 2 Subjective: 49-year-old male admitted with paranoia currently on a hold. The patient had reported that others had been concerned about his behavior and the patient stated that he was being held here because he had been arguing being with his father. He had reported that his father is a mean person and had intention of keeping him here for some unknown purpose. He had admitted to using marijuana on a regular basis. He had reported no chest pain today. He had reported having no thoughts of hurting himself or others. Mental Status Exam 2 MSE Comments: This is a well-nourished well-developed white male in hospital scrubs with adequate grooming and eye contact. No abnormal movements except for mild psychomotor agitation. He was cooperative with exam in mild to moderate distress. His speech was slightly increased in rate and normal in volume. Mood described as fine and not needing to be in the hospital. His affect was restricted in range. His thought process was linear. Thought content: Patient denied suicidal or homicidal ideation, there were no delusions reported but some evidence of paranoia. He denied any auditory or visual hallucinations. He did not appear to be responding to internal stimuli. Attention and concentration were intact and memory appeared unreliable but none were formally tested. He is alert and oriented times 3. Insight and judgment appear fair and impulse control is impaired. Vitals/I&O/Wt Last Vital Signs Temp 97.3 F L 04/02/25 06:00 Pulse 93 04/02/25 06:00 Resp 18 04/02/25 06:00 BP 121/83 04/02/25 06:00 Pulse Ox 99 04/02/25 06:00 O2 Del Method Room Air 04/02/25 06:00 Weight last 48 hrs Weight 84.028 kg Weight 83 kg Weight 83 kg Weight 83.915 kg Data NPU 03/31/25 16:32 03/31/25 16:32 A&P Assessment and plan 1. Acute psychosis: 2. Involuntary commitment: 3. Altered mental status: 4. Parent-child relational problem: Plan: This is a 49-year-old white male unknown to [facility] psychiatry presenting on a 96-hour hold denying who was sent to the ICU and now is transferred to the neuropsychiatric unit for definitive treatment and evaluation of his safety for discharge given his 96-hour hold. He endorses active cannabis use but denied any mental health issues. 1.? Continue current medication.? Explore needed for psychotropic medications. 2.? Continue every 15 minute checks for safety. 3.? Encourage individual, group and milieu therapies. 4.? Encourage sober living treatment after discharge at the highest level of care to which he is willing to commit. 5. Obtain collateral information. 6. Observe against the backdrop of 96-hour hold. PDMP PDMP Reviewed: Not Reviewed Involuntary Hold Information 2 Hold Status: Legal Status: 96 Hour Hold Date/Time Hold Expires: 1 @1620 Attestations NPU 2 Medical Necessity Statement*: Inpatient hospitalization is medically necessary and the clinically appropriate intervention at this time. We will monitor/initiate medications and make changes as indicated. The patient's likely length of stay 2-3 days. Coding Level of Care Code Acute Code for Chg Fwd Diagnoses Acute psychosis F23 Involuntary commitment Z04.6 Altered mental status R41.82 Parent-child relational problem Z62.820
[2025-04-02 14:00] VITALS: BP 132/94; PULSE 63; RESP 18; TEMP 36.8; O2SAT 99
[2025-04-02 20:19] VITALS: BP 143/101; PULSE 72; RESP 19; TEMP 36.9; O2SAT 96
[2025-04-03 06:00] VITALS: BP 122/71; PULSE 81; RESP 17; TEMP 36.6; O2SAT 98
[2025-04-03 14:00] VITALS: BP 129/90; PULSE 64; RESP 15; TEMP 36.8; O2SAT 97
--- NOTE | 2025-04-03 16:59 | P.NPUPN_ITS ---
Subjective NPU 2 Subjective: 49-year-old male admitted with reports o f psychosis and reporting recent and daily use of THC currently on a 96-hour hold. The patient was redirectable on the unit. He had been irritable but stated that he was hopeful about going home. He had stated that he had plan to leave his current home situation when discharged. He had been less isolative on the milieu. He reported no desire to consider any medications or treatment. He reported no suicidal thoughts. Patient reported that he needed to go home soon to take care of his dog. This Mental Status Exam 2 MSE Comments: This is a well-nourished well-developed white male in hospital scrubs with adequate grooming and eye contact. No abnormal involuntary motor movements appreciated. He was cooperative with exam in no acute distress today. His speech was normal in rate and normal in volume. Mood described as okay. His affect was restricted in range. His thought process was linear but still superficial. Thought content: Patient denied suicidal or homicidal ideation, there were no delusions reported but some evidence of paranoia and general mistrust of others. He denied any auditory or visual hallucinations. He did not appear to be responding to internal stimuli. His attention span was fair. He is alert and oriented times x 3. Insight and judgment appear fair and impulse control is improving. Vitals/I&O/Wt Last Vital Signs Temp 98.3 F 04/03/25 14:00 Pulse 64 04/03/25 14:00 Resp 15 04/03/25 14:00 BP 129/90 04/03/25 14:00 Pulse Ox 97 04/03/25 14:00 O2 Del Method Room Air 04/03/25 06:00 Weight last 48 hrs Weight 84.028 kg Data NPU 03/31/25 16:32 03/31/25 16:32 A&P Assessment and plan 1. Acute psychosis: 2. Involuntary commitment: 3. Altered mental status: 4. Parent-child relational problem: Plan: This is a 49-year-old white male unknown to [facility] psychiatry presenting on a 96-hour hold denying who was sent to the ICU and now is transferred to the neuropsychiatric unit for definitive treatment and evaluation of his safety for discharge given his 96-hour hold. He endorses active cannabis use but denied any mental health issues. 1.? Patient refusing any psychotropic medications. 2.? Continue every 15 minute checks for safety. 3.? Encourage individual, group and milieu therapies. 4.? Encourage sober living treatment after discharge at the highest level of care to which he is willing to commit. 5. Obtain collateral information. 6. Observe against the backdrop of 96-hour hold, likely discharge tommorow. PDMP PDMP Reviewed: Not Reviewed Involuntary Hold Information 2 Hold Status: Legal Status: 96 Hour Hold Date/Time Hold Expires: 04/06/25 @16:20 Attestations NPU 2 Medical Necessity Statement*: Inpatient hospitalization is medically necessary and the clinically appropriate intervention at this time. We will monitor/initiate medications and make changes as indicated. The patient's likely length of stay 1-2 days. Coding Level of Care Code Acute Code for g Fwd Diagnoses Acute psychosis F23 Involuntary commitment Z04.6 Altered mental status R41.82 Parent-child relational problem Z62.820
[2025-04-03 20:08] VITALS: BP 145/86; PULSE 57; RESP 18; TEMP 36.7; O2SAT 98
[2025-04-04 06:00] VITALS: BP 137/101; PULSE 85; RESP 17; TEMP 36.7; O2SAT 98
[2025-04-04 10:48] VITALS: BP 138/88; PULSE 59; RESP 16; TEMP 36.7; O2SAT 97
--- NOTE | 2025-04-04 12:25 | P.NPUDS_ITS ---
Diagnoses at Discharge Discharge Diagnosis 1. Acute psychosis: 2. Involuntary commitment: 3. Altered mental status: 4. Parent-child relational problem: Reason for Visit Reason for Visit: 96 Brief History: History of Present Illness Jayesh Felder is a 49 year old male who presented to the emergency department with the following report: Chief Complaint: Psychiatric Symptoms Stated Complaint: 96 Time Seen by Provider: 03/31/25 16:14 Source: patient Mode of arrival: EMS Limitations: no limitations History of Present Illness: Patient is a 49-year-old male presents to ED today on a 96-hour hold. According to hold paperwork filed by patient's family he has had a change in mental status over the past 2 weeks or so. They are concerned about potential drug use. 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 Paperwork states he has been exhibiting paranoid behavior-suspiciously watching family members, covering house windows, etc. He has apparently made statements to kill himself. MD complaint: altered mental status and other (psychosis) Onset (ago): unknown Relieving factors: none Exacerbating factors: none Associated symptoms: Reports no associated symptoms; Deny auditory hallucinations, visual hallucinations, homicidal ideation or suicidal ideation Treatments prior to arrival: placed on mental health hold. He was admitted to the ICU secondary to some cardiac concerns that happened on admission but otherwise his admission was based on concern for altered mental status and odd behaviors over the past couple weeks raising concerns for addiction. He presents with a UDS positive for cannabis denying any issues or wanting any treatment of any kind. He found it comical often laughing about being on a 96-hour hold. His report is that this has to do with his family trying to take a property away from him. He reports that he has lived on his grandparents property which is approximately 40 acres for at least a year but has been there at different times in his life. He reports that after the of the last grandparent things went into probate because of Bill not having a clear plan of what was to happen with their belongings. He reports that there is now a nuñez over the property and he believes at some level that this is an attack trying to prevent him from having his right pole placed on the property as his grandparents had reportedly stated that they wanted him to have it. Family reports significant issues of behavioral changes but he denies any of the things in the affidavit. He denied making any suicidal or homicidal statements, he denied any strange behavior and only reports cannabis use. When this loan underwriter raised the possibility that the cannabis use could be a source of behavioral change/psychosis he reported that he always used the appropriate strength and did not overuse and so there was no risk in his mind or any way that cannabis could have caused this problem. We discussed briefly that that cannot be the evidence as but that with his position. He endorses a history of tobacco use but denies current use, he endorses past alcohol use but not currently and possibly had a DUI in the past but it was released 30 years ago because it was before his children were born. He endorsed cannabis use but not overuse and denied use of any other illicit drugs. He denied any sober living treatment. He denied any charges. He denies any history of mental health issues or need for treatment in the past. Denying symptoms consistent with depression, anxiety, PTSD, OCD but did endorse having had ADHD and may be receiving Ritalin in the past from a doctor that he called Dr. Newton but this loan underwriter queried whether that could be Dr. Neftaly Higginbotham who had been here for some time. No records existed that confirmed that but he reports he got the treatment in [facility]. Otherwise he reported no issues whatsoever and not believing he needs to be in the hospital. We discussed the risks, benefits and alternatives of getting collateral information and he understood and agreed to proceed as documented in the note. Past psychiatric history: As above. Symptoms abuse history: As above. Family history: He denies any mental health issues that he is aware of reports that likely was an addiction issue but denied any suicide attempt or by suicide. Developmental history: He denies any issues with his or delivery, and endorses that he learned to walk and complement his developmental milestones on time. He would often rule he denied any history of therapy, learning support, multiple orthopedic medications. Psychosocial history: He reports that his parents were together when he was born and that he is the youngest of 3. He denies any issues of abuse or neglect at his childhood. He denied living with any one other than his parents during his childhood. He denies any clear traumatic events. He denies graduating from high school reporting that he dropped out birthday of his senior year. He denied ever getting ADD. He endorses being a heterosexual and reports having had multiple significant relationships reporting he was recently to a 3 time and he developed ended in divorce. He reports he has 3 children all grown 2 boys and a girl. He has never been in the , and endorses being a Anabaptism. 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 He currently lives in the farm house but his grandparents property alone with 1 dog. Legal history: He reports that he was only in [facility] briefly during that DUI. He denies any other legal problems outside of probate issues with the family farm. Medical history: He identified that he has of the issues that were identified on admission but otherwise denied major medical history but believes he hospitalist note for additional information. Hospital Course Hospital Course During the hospitalization, the patient had routine laboratory studies which were within normal limits except for a few outliers.? Additionally, there was a general medical evaluation which was also within normal limits and revealed no new acute processes.? At the time of discharge, lethality was denied and psychosis was resolving. The patient had appeared somewhat irritable but refused any medications at this time. Mood and anxiety were well managed.? The patient endorsed a plan to avoid all drugs of abuse and follow up with the aftercare recommendations of the treatment team.? The patient was evaluated and deemed to be absent credible lethality and had achieved the maximum benefit from an inpatient hospitalization, and so was discharged.? He did not appear to be in need for involuntary hospitalization any longer and thereby was discharged back home. The patient was encouraged to avoid marijuana use as this had been a possibility of having caused psychosis in this patient. Involuntary Hold Information Hold Status: Legal Status: 96 Hour Hold Date/Time Hold Expires: 04/06/25 @16:20 Mental Status Exam MSE Comments: This is a well-nourished well-developed white male in hospital scrubs with adequate grooming and eye contact. No abnormal involuntary motor movements appreciated. He was cooperative with exam in no acute distress today. His speech was normal in rate and normal in volume. Mood described as fine His affect was less irritable. His thought process was linear but still superficial. Thought content: Patient denied suicidal or homicidal ideation, there were no delusions reported. He denied any auditory or visual pauline lucinations. He did not appear to be responding to internal stimuli. His attention span was fair. He is alert and oriented times x 3. Insight and judgment appear fair and impulse control is improving. Discharge Data Studies Completed and Pending: Completed Studies During Hospitalization Category Date Time Status CT head wo con* [id number] Stat Cat Scan 03/31/25 17:28 Completed CV. echo complete * [id number] Stat Ultrasound 04/01/25 17:26 Completed Radiology Impressions Head CT 03/31/25 17:28 IMPRESSION: No acute intracranial abnormality. Laboratory Results WBC 10.00 10^3/uL (3. 29-11.43) 03/31/25 16:32 RBC 5.16 10^6/uL (3.8 5-5.65) 03/31/25 16:32 Hgb 16.20 g/dL (11.27 -16.99) 03/31/25 16:32 Hct 47.0 % (37-53) 03/31/25 16:32 MCV 91.1 fl (82-101) 03/31/25 16:32 MCH 31.4 pg (27-33) 03/31/25 16:32 MCHC 34.5 g/dL (30-55) 03/31/25 16:32 RDW 12.4 % (12.1-15.1 ) 03/31/25 16:32 Plt Count 242 10^3/cmm (157 -399) 03/31/25 16:32 MPV 10.8 fL (7.4-10.4 ) H 03/31/25 16:32 Neut % (Auto) 62.5 % 03/31/25 16:32 Lymph % (Auto) 24.8 % 03/31/25 16:32 [place] % (Auto) 8.8 % 03/31/25 16:32 Eos % (Auto) 3.4 % 03/31/25 16:32 Baso % (Auto) 0.3 % 03/31/25 16:32 Neut # (Auto) 6.25 10^3/uL (1.8 -7.7) 03/31/25 16:32 Lymph # (Auto) 2.5 10^3/uL (0.8- 4.8) 03/31/25 16:32 [place] # (Auto) 0.9 10^3/uL (0.2- 0.9) 03/31/25 16:32 Eos # (Auto) 0.3 10^3/uL (0.0- 0.8) 03/31/25 16:32 Baso # (Auto) 0.0 10^3/uL (0.0- 0.1) 03/31/25 16:32 Nucleated RBC % (a uto) 0 % 03/31/25 16: Nucleated RBCs # 0.0 /100WBC 03/31/25 16:32 Sodium 140 mmol/L (136-1 45) 03/31/25 16:32 Potassium 3.3 mmol/L (3.5-5 .1) L 03/31/25 16:32 Chloride 102 mmol/L (98-10 7) 03/31/25 16:32 Carbon Dioxide 21 mmol/L (22-29) L 03/31/25 16:32 Anion Gap 20.3 (5-19) H 03/31/25 16:32 BUN 5 mg/dL (6-20) L 03/31/25 16:32 Creatinine 0.8 mg/dL (0.7-1. 2) 03/31/25 16:32 GFR Calculation 101.9 mL/min (90- 130) 03/31/25 16:32 Glucose 134 mg/dL (65-115 ) H 03/31/25 16:32 Estimat Average Gl ucose 105 03/31/25 16:32 Hemoglobin A1c 5.3 % (4.0-6.0) 03/31/25 16:32 Calculated Osmolal ity 289 mOsm/kg (285- 295) 03/31/25 16:32 Calcium 9.0 mg/dL (8.5-10 .5) 03/31/25 16:32 Total Bilirubin 0.5 mg/dL (0.15-1 .2) 03/31/25 16:32 AST 16 U/L (0-40) 03/31/25 16:32 ALT 17 U/L (0-41) 03/31/25 16:32 Alkaline Phosphata se 75 U/L (40-130) 03/31/25 16:32 Troponin T Baselin e 9 ng/L (0-15) 03/31/25 16:32 NT-Pro-B Natriuret Pep 44 pg/mL (0-125) 03/31/25 16:32 Total Protein 6.9 g/dL (6.6-8.7 ) 03/31/25 16:32 Albumin 4.3 g/dL (3.5-5.2 ) 03/31/25 16:32 Globulin 2.6 g/dL (1.3-4.6 ) 03/31/25 16:32 Triglycerides 95 mg/dL (0-150) 03/31/25 16:32 Cholesterol 153 mg/dL (0-200) 03/31/25 16:32 LDL Cholesterol, C alc 101 mg/dL (50-129 ) 03/31/25 16:32 HDL Cholesterol 33 mg/dL (60-100) L 03/31/25 16:32 LDL/HDL Ratio 3.06 RATIO (0.00- 3.22) 03/31/25 16:32 Cholesterol/HDL Ra kerline 4.64 mg/dL (1.0-5 .00) 03/31/25 16:32 TSH 1.37 uIU/mL (0.27 -4.20) 03/31/25 16:32 Urine Color Yellow (Yellow) 04/01/25 05:50 Urine Appearance Clear (CLEAR) 04/01/25 05:50 Urine pH 7.0 (5-7) 04/01/25 05:50 Ur Specific Gravit y 1.017 (1.005-1.0 30) 04/01/25 05:50 Urine Protein Negative (Negati ve) 04/01/25 05:50 Urine Glucose (UA) Negative (Normal ) 04/01/25 05:50 Urine Ketones Trace (Negative) 04/01/25 05:50 Urine Blood Negative (Negati ve) 04/01/25 05:50 Urine Nitrate Negative (Negati ve) 04/01/25 05:50 Urine Bilirubin Negative (Negati ve) 04/01/25 05:50 Urine Urobilinogen 1.0 mg/dL (Negati ve) 04/01/25 05:50 Ur Leukocyte Jessica ase Negative (Negati ve) 04/01/25 05:50 Urine RBC 0-2 /hpf (0-2) 04/01/25 05:50 Urine WBC 0-5 /hpf (0-5) 04/01/25 05:50 Ur Squamous Epith Cells 0-5 /hpf (0-5) 04/01/25 05:50 Amorphous Sediment Not Reportable 04/01/25 05:50 Urine Bacteria None seen /hpf (N ONE) 04/01/25 05:50 Hyaline Casts 1.65 /lpf 04/01/25 05:50 Salicylates < 0.3 mg/dL (3-10 ) L 03/31/25 16:32 Urine Opiates Scre en Negative ng/mL (N egative) 03/31/25 17:15 Acetaminophen < 5.0 ug/mL (10-3 0) L 03/31/25 16:32 Ur Barbiturates Sc reen Negative ng/mL (N egative) 03/31/25 17:15 Ur Phencyclidine S crn Negative ng/mL (N egative) 03/31/25 17:15 Ur Amphetamines Sc reen Negative ng/mL (N egative) 03/31/25 17:15 U Benzodiazepines Scrn Negative ng/mL (N egative) 03/31/25 17:15 Urine Cocaine Scre en Negative ng/mL (N egative) 03/31/25 17:15 U Marijuana (THC) Screen Positive ng/mL (N egative) H 03/31/25 17:15 Ethyl Alcohol < 10 mg/dL (0-10) 03/31/25 16:32 Vitals: Last Vital Signs Temp 98.0 F 04/04/25 10:48 Pulse 85 04/04/25 10:48 Resp 17 04/04/25 10:48 BP 137/101 04/04/25 10:48 Pulse Ox 98 04/04/25 10:48 O2 Del Method Room Air 04/04/25 06:00 Discharge Plan Discharge Patient Disposition: Home Condition: Stable Prescriptions: New aspirin 81 mg Tablet,Delayed Release (Dr/Ec) 81 mg PO DAILY 30 Days Qty: 30 1RF metoprolol tartrate 25 mg Tablet 12.5 mg PO BID@0900,2100 30 Days Qty: 30 1RF Discharge Order = DC NOW: Discharge Order (Routine); Ordered 04/04/25 Ordered By: Get Son Referrals: [facility] [Outside] Clifford Lee M.D [Physician, Cardiology] - 4-7 days Referral Note: afib, lvh Kristian Bishop MD [Physician, Cardiology] - 05/01/25 9:00 am Referral Note: Hospitial follow up Discharge Diet: Usual diet Discharge Activity: Resume usual activity Patient Instructions: A-fib (Atrial Fibrillation) (DC), Depression (DC), Anxiety (DC), Psychotic Disorder (DC), Suicide Prevention (DC), Opioid Safety, Patient Portal & Cora Instructions Discharge Attestations NPU Time Spent in Discharge Care*: less than 30 min Specific Discharge Activities: Specific discharge activities: educating patient, discussing with community case manager/social workers/dc planners and documenting/other paperwork Coding Level of Care Code Acute Code for Chg Fwd Diagnoses Acute psychosis F23 Involuntary commitment Z04.6 Altered mental status R41.82 Parent-child relational problem Z62.820
== END 2025-04-04 14:36 | disposition home or self-care (01) | DRG 885 ==
LOC: ER 17:38 → ER IP 18:27 → ICU 19:34 → NP 04-01 13:34
PROVIDERS: Admitting Provider Family Medicine; Emergency Provider Physician Assistant; Visit Provider Psychiatry & Neurology Psychiatry
DX: F22 Delusional disorders (principal); R45.851 Suicidal ideations; F90.9 Attention-deficit hyperactivity disorder, unspecified type; R45.850 Homicidal ideations; I48.91 Unspecified atrial fibrillation; I95.2 Hypotension due to drugs; T46.1X5A Adverse effect of calcium-channel blockers, initial encounter; Z62.820 Parent-biological child conflict; Z63.8 Other specified problems related to primary support group; Z87.891 Personal history of nicotine dependence
CPT/HCPCS: 36415; 70450; 80053; 80061; 80306; 80307; 81001; 83036; 83880; 84443; 84484; 85025; 93005; 93306; 94664; 96374; 97150; 97165; 99285; J3490; J9999